=== PATIENT | female | born 1930 | race Caucasian/White ===

== ENCOUNTER 2017-06-06 13:03 | Inpatient (IN) | payer OTHER ==
[~2017-06-06] VITALS: Ht 165.1 cm; Wt 68.0 kg
--- NOTE | ~2017-06-06 | EKG ---
[address] [address] ELECTROCARDIOGRAM REPORT Name: ALLAVLAD Room #: 456-P ADM IN M.R.#: [id number] Admission: 06/06/17 Attend Phys: Armando Woo DO Discharge: Date of : [birth year] Report #: [id number] THIS REPORT FOR: //name// [facility] ED Test Date: 2017-06-06 Test Time: 13:19:12 Pat Name: VLAD GOLD Department: Room: 456 Gender: F General Internist: FERNANDO : 1930 Requested By: Patricio Philip Order Number: [id number] MD: Hermilo Wheat Measurements Intervals [place] Rate: 73 P: [place]: QRS: 48 QRSD: 92 T: 1 QT: 402 QTc: 443 Interpretive Statements Atrial fibrillation Borderline T abnormalities, inferior leads No previous ECG available for comparison Electronically Signed On 06-08-2017 22:08:16 CDT by Hermilo Wheat [email or web address] <ELECTRONICALLY SIGNED> By: Hermilo Wheat MD 06/08/17 2208 1319 1319 Hermilo Wheat MD /VICKIE
[2017-06-06 13:06] VITALS: BP 130/80
[2017-06-06] MEDS ORDERED: BAYER CHEWABLE81 MG PO (13:22)
[2017-06-06] MEDS ORDERED: ALDACTONE25 MG PO (13:23)
[2017-06-06] MEDS ORDERED: LISINOPRIL20 MG PO (13:23)
[2017-06-06] MEDS ORDERED: CARVEDILOL25 MG PO (13:23)
[2017-06-06] MEDS ORDERED: DEMADEX20 MG PO (13:24)
[2017-06-06] MEDS ORDERED: SIMVASTATIN10 MG PO (13:24)
[2017-06-06 13:51] LABS: HEMATOCRIT 31.7 % (37.0-47.0); HEMOGLOBIN 10.3 gm/dL (12.0-15.0); MCH 28.9 pg (26.0-34.0); MCHC 32.7 g/dL (28.0-37.0); MCV 88.6 fL (80.0-100.0); PLATELET COUNT 213 thou/uL (150-400); RBC 3.58 mil/uL (4.20-5.00); RDW 15.1 % (10.5-14.5); WBC 14.7 thou/uL (4.0-11.0)
[2017-06-06 13:53] LABS: MANUAL DIFF YES
[2017-06-06 14:03] LABS: CALCIUM 8.6 mg/dL (8.5-10.1); POTASSIUM 3.6 mmol/L (3.5-5.1)
[2017-06-06 14:13] LABS: ALBUMIN 3.3 g/dL (3.4-5.0); MAGNESIUM 2.2 mg/dL (1.8-2.4); TOTAL BILIRUBIN 1.5 mg/dL (<0.1-1.0); TOTAL PROTEIN 7.2 g/dL (6.4-8.2); TROPONIN-I 0.04 ng/mL (<0.04-0.07)
[2017-06-06 14:20] LABS: ABSOLUTE NEUTROPHILS 13.7 thou/uL (1.4-8.2); LARGE PLATELETS FEW; TOTAL CELL COUNT 100
[2017-06-06 17:27] VITALS: BP 140/73
[2017-06-06 19:33] VITALS: BP 106/62
[2017-06-07 01:58] LABS: ABSOLUTE NEUTROPHILS 7.7 thou/uL (1.4-8.2); BASOPHILS 0.3 % (0.0-2.0); EOSINOPHILS 0.9 % (0.0-3.0); HEMATOCRIT 28.1 % (37.0-47.0); HEMOGLOBIN 9.5 gm/dL (12.0-15.0); LYMPHOCYTES 12.3 % (24.0-44.0); MCH 29.3 pg (26.0-34.0); MCHC 33.8 g/dL (28.0-37.0); MCV 86.8 fL (80.0-100.0); MONOCYTES 8.5 % (1.0-8.0); PLATELET COUNT 179 thou/uL (150-400); RBC 3.24 mil/uL (4.20-5.00); RDW 15.2 % (10.5-14.5); WBC 9.9 thou/uL (4.0-11.0)
[2017-06-07 02:00] LABS: CREATININE 1.1 mg/dL (0.6-1.0); MAGNESIUM 2.1 mg/dL (1.8-2.4)
[2017-06-07 02:18] LABS: MANUAL DIFF NO
[2017-06-07 03:59] VITALS: BP 104/47
[2017-06-07 07:30] VITALS: BP 138/59
[2017-06-07] MEDS ORDERED: ESTRADIOL 1 MG T1 M1 PO (09:41)
[2017-06-07 12:48] VITALS: BP 105/44
[2017-06-07 16:26] VITALS: BP 126/57
[2017-06-07 18:01] LABS: URINE BILIRUBIN NEGATIVE (Negative); URINE BLOOD NEGATIVE (Negative); URINE COLOR YELLOW; URINE GLUCOSE-RANDOM* NEGATIVE (Negative); URINE KETONES NEGATIVE (Negative); URINE LEUKOCYTES-REFLEX NEGATIVE (Negative); URINE PROTEIN (DIPSTICK) NEGATIVE (Negative); URINE SPECIFIC GRAVITY <= 1.005 (1.003-1.035); URINE UROBILINOGEN 0.2 E.U./dl (0.2-1.0)
[2017-06-07 19:26] VITALS: BP 109/54
[2017-06-08 02:57] VITALS: BP 111/67
[2017-06-08 05:50] LABS: ABSOLUTE NEUTROPHILS 6.9 thou/uL (1.4-8.2); BASOPHILS 0.1 % (0.0-2.0); EOSINOPHILS 1.4 % (0.0-3.0); HEMATOCRIT 26.6 % (37.0-47.0); HEMOGLOBIN 9.1 gm/dL (12.0-15.0); LYMPHOCYTES 11.3 % (24.0-44.0); MCH 29.6 pg (26.0-34.0); MCHC 34.1 g/dL (28.0-37.0); MCV 86.7 fL (80.0-100.0); PLATELET COUNT 174 thou/uL (150-400); POLYS 75.2 % (36.0-66.0); RBC 3.07 mil/uL (4.20-5.00); RDW 15.3 % (10.5-14.5); WBC 9.2 thou/uL (4.0-11.0)
[2017-06-08 05:57] LABS: MANUAL DIFF NO
[2017-06-08 06:14] LABS: ALBUMIN 2.4 g/dL (3.4-5.0); CALCIUM 7.8 mg/dL (8.5-10.1); MAGNESIUM 2.1 mg/dL (1.8-2.4); POTASSIUM 3.5 mmol/L (3.5-5.1); TOTAL BILIRUBIN 0.6 mg/dL (<0.1-1.0); TOTAL PROTEIN 5.9 g/dL (6.4-8.2)
[2017-06-08 08:19] VITALS: BP 112/51
[2017-06-08 12:40] VITALS: BP 120/64
[2017-06-08 15:25] VITALS: BP 126/89
[2017-06-08 20:12] VITALS: BP 107/44
[2017-06-09 03:46] VITALS: BP 133/49
[2017-06-09 05:14] LABS: ABSOLUTE NEUTROPHILS 5.1 thou/uL (1.4-8.2); BASOPHILS 0.3 % (0.0-2.0); HEMATOCRIT 26.5 % (37.0-47.0); HEMOGLOBIN 9.1 gm/dL (12.0-15.0); LYMPHOCYTES 16.3 % (24.0-44.0); MCH 29.5 pg (26.0-34.0); MCHC 34.2 g/dL (28.0-37.0); MCV 86.1 fL (80.0-100.0); MONOCYTES 11.8 % (1.0-8.0); PLATELET COUNT 173 thou/uL (150-400); POLYS 68.6 % (36.0-66.0); RBC 3.08 mil/uL (4.20-5.00); RDW 15.4 % (10.5-14.5); WBC 7.5 thou/uL (4.0-11.0)
[2017-06-09 05:17] LABS: MANUAL DIFF NO
[2017-06-09 05:35] LABS: ALBUMIN 2.5 g/dL (3.4-5.0); CREATININE 0.8 mg/dL (0.6-1.0); POTASSIUM 3.7 mmol/L (3.5-5.1); TOTAL BILIRUBIN 0.5 mg/dL (<0.1-1.0); TOTAL PROTEIN 6.1 g/dL (6.4-8.2)
[2017-06-09 08:08] VITALS: BP 132/71
[2017-06-09 11:47] VITALS: BP 118/60
[2017-06-09 16:05] VITALS: BP 134/60
[2017-06-09 19:54] VITALS: BP 122/52
[2017-06-10 05:04] VITALS: BP 143/72
[2017-06-10 07:40] VITALS: BP 120/79
[2017-06-10] MEDS ORDERED: CEPHALEXIN 500500 M3 PO (11:31)
[2017-06-10] MEDS ORDERED: COLCRYS0.6 MG PO (11:32)
[2017-06-10 12:41] VITALS: BP 125/82
== END 2017-06-10 15:14 | DRG 602 ==
LOC: ER 13:03 → 4W 16:15 → EROBS 16:15 → 4W 16:53
PROVIDERS: Emergency Medicine; Internal Medicine Geriatric Medicine; Nurse Practitioner Family
DX: L03.116 Cellulitis of left lower limb (principal); I50.21 Acute systolic (congestive) heart failure; E43 Unspecified severe protein-calorie malnutrition; N17.9 Acute kidney failure, unspecified; M10.9 Gout, unspecified; I11.0 Hypertensive heart disease with heart failure; I48.91 Unspecified atrial fibrillation; E87.6 Hypokalemia; D64.9 Anemia, unspecified; R33.9 Retention of urine, unspecified; Z90.710 Acquired absence of both cervix and uterus; Z88.8 Allergy status to other drugs, medicaments and biological substances
CPT/HCPCS: 10045

== ENCOUNTER 2017-06-10 10:39 | Inpatient (IN) | payer OTHER ==
[~2017-06-10] VITALS: Ht 165.1 cm; Wt 73.7 kg
--- NOTE | ~2017-06-10 | HC ---
[facility] [place] [address] CONSULTATION Name: VLAD GOLD Room #: 509-P [facility] IN .R.#: [id number] Admission: 06/10/17 Attend Phys: Escobar Cotter MD Discharge: 06/19/17 Date of : [birth year] Report #: [id number] THIS REPORT FOR: //name// CC: Escobar Harden Dony DATE OF SERVICE: 06/16/2017 ATTENDING PHYSICIAN: Escobar Cotter M.D. SHIPWRIGHT SUPERVISOR: Levy Flores, PhD CLINICAL PRESENTATION: The patient is an 86-year-old female admitted to the rehabilitation unit at [facility] for comprehensive inpatient rehabilitation program to improve functional mobility, activities of daily living and self-care and mental status secondary to deficits from medical complexity and generalized debilitation. Her medical problems include acute decompensated heart failure, cellulitis, and congestive heart failure. A complete description of her medical condition, history and medications can be found in her medical records. Neuropsychological consultation was requested to provide assistance in the assessment of cognitive and emotional status and to provide recommendations and services. Prior to this most recent medical event, she was living independently in her own home with her . She has 2 children. Both children are dentists. The patient is reported to be moving into the home of her son following discharge from inpatient rehabilitation. Her family is concerned about her cognitive functioning and describe problems with memory, word finding and thought organization. The patient appears to lack insight into her cognitive deficits, as she does not report the problems that are noticed by her family. difficulty with cognition, mood or behavior. Cognitive assessement from speech therapy while still an inpatient at [facility], suggest deficits in executive functioning and memory. TECHNIQUES UTILIZED: Clinical Interview, Staff Consultation, Family Interview - Son EXAMINATION FINDINGS AND RECOMMENDATIONS: As indicated the patient is not reporting problems with cognitive functining, mood or behavior. Her principal complaint is pain from Gout. Since she is presenting with deficits in cognition as noted by speech and her family is concerned about her cognitive status, follow up neuropsychological assessment following discharge is indicated. I discussed follow up assessment with son and he is planning to call my office and arrange for the appointment. [facility] [address] [place] [address] CONSULTATION Name: VLAD GOLD Room #: 509-P DIS IN M.R.#: [id number] Admission: 06/10/17 Attend Phys: Escobar Cotter MD Discharge: 06/19/17 Date of : [birth year] Report #: [id number] Followup neuropsychological assessment will help clarifity the severity of her deficits and provide recommendations to assist with adjustment and for compensatory strateies. Thank you very much for allowing me to provide the consultation on this patient. <ELECTRONICALLY SIGNED> By: Levy Flores, PhD 06/22/17 1414 1452 06 Levy Flores, PhD /nt
--- NOTE | ~2017-06-10 | HC ---
[facility] [place] [address] CONSULTATION Name: VLAD GOLD Room #: 509-P [facility] IN .R.#: [id number] Admission: 06/10/17 Attend Phys: Escobar Cotter MD Discharge: Date of : [birth year] Report #: [id number] THIS REPORT FOR: //name// CC: Escobar Jaimes DATE OF SERVICE: 06/12/2017 CHIEF COMPLAINT: Gluteal pressure ulcerations. HISTORY OF PRESENT ILLNESS: This is an 86-year-old female patient who is admitted to the rehab floor. I have been consulted to see her with regard to care of stage 2 pressure ulcerations to the left buttock and left ischial region. The patient notes a little bit of discomfort in that location. She was originally admitted to the hospital with left ankle pain and left lower extremity cellulitis. She was seen by the wound care nurses for the ulcerations on her gluteal and ischial region. PAST MEDICAL HISTORY: Positive for history of congestive heart failure, cellulitis. ALLERGIES: CODEINE AND IODINE. MEDICATIONS: Include spironolactone, carvedilol, lisinopril, simvastatin, torsemide, estradiol, chewable aspirin, colchicine, cephalexin. SOCIAL HISTORY: Negative for alcohol or tobacco use. FAMILY HISTORY: Noncontributory. SOCIAL HISTORY: Negative for alcohol or tobacco use. REVIEW OF SYSTEMS: CONSTITUTIONAL: Denies fever, chills, weight loss. NEUROLOGICAL: Denies focal weakness, numbness, tingling. EYES: The patient denies visual change, but has drainage. ENT: The patient denies earache, nasal drainage, sore throat. CARDIOVASCULAR: The patient denies chest pain, palpitations, diaphoresis. PULMONARY: The patient denies cough, shortness of breath. GASTROINTESTINAL: The patient denies nausea, diarrhea or abdominal pain. ORTHOPEDIC: The patient denies pain, swelling in the extremities. She is aware of ulcerations on the gluteal and ischial regions, states that she has some discomfort there. Other systems of the 12-point review of systems are negative. [address] [address] CONSULTATION Name: VLAD GOLD Room #: 509-P [facility] IN M.R.#: [id number] Admission: 06/10/17 Attend Phys: Escobar Cotter MD Discharge: Date of : [birth year] Report #: [id number] PHYSICAL EXAMINATION: VITAL SIGNS: Include pulse 70, respiratory rate 16, blood pressure 110/50, temperature 98.4. GENERAL: This is a chronically ill-appearing female patient appears in minimal distress. HEENT: Head normocephalic. Nose and throat clear. NECK: Supple. LUNGS: Clear. HEART: . ABDOMEN: Soft. Bowel sounds present. EXTREMITIES: The sacral gluteal region demonstrates erythema that is consistent with stage 2 pressure ulceration to the left gluteal and left ischial region. No subcutaneous tissue exposed at this time. No evidence of infection is noted. CLINICAL IMPRESSION: 1. Stage 2 pressure ulceration to the right gluteal region and right ischial region. 2. Acute decompensated congestive heart failure. 3. History of cellulitis. RECOMMENDATIONS: At this point in time, we will recommend moisture barrier cream to the affected areas. She needs to be turned and repositioned while in bed. We recommend offloading whenever possible when seated in chair. I appreciate being asked to see the patient in consultation. <ELECTRONICALLY SIGNED> By: Lance Ceron MD 06/13/17 0742 1700 2142 Lance Ceron MD /nt
[~2017-06-10 10:39] MED LIST: ALDACTONE25 MG PO; BAYER CHEWABLE81 MG PO; CARVEDILOL25 MG PO; DEMADEX20 MG PO; ESTRADIOL 1 MG T1 M1 PO; LISINOPRIL20 MG PO; SIMVASTATIN10 MG PO
[2017-06-10] MEDS ORDERED: CEPHALEXIN 500500 M3 PO (11:31)
[2017-06-10] MEDS ORDERED: COLCRYS0.6 MG PO (11:32)
[2017-06-10 15:30] VITALS: BP 155/70
[2017-06-11 05:02] LABS: HEMATOCRIT 27.1 % (37.0-47.0); HEMOGLOBIN 9.2 gm/dL (12.0-15.0); MCH 29.2 pg (26.0-34.0); MCHC 33.9 g/dL (28.0-37.0); MCV 86.1 fL (80.0-100.0); RBC 3.14 mil/uL (4.20-5.00); RDW 14.8 % (10.5-14.5); WBC 6.1 thou/uL (4.0-11.0)
[2017-06-11 05:14] LABS: CALCIUM 8.5 mg/dL (8.5-10.1); CREATININE 0.8 mg/dL (0.6-1.0); POTASSIUM 3.9 mmol/L (3.5-5.1)
[2017-06-11 05:39] VITALS: BP 144/57
[2017-06-11 16:00] VITALS: BP 131/59
[2017-06-12 05:33] VITALS: BP 126/62
[2017-06-12 08:00] VITALS: BP 137/70
[2017-06-12 12:00] VITALS: BP 132/54
[2017-06-12 16:00] VITALS: BP 135/50
[2017-06-13 06:42] VITALS: BP 125/54
[2017-06-14 06:13] VITALS: BP 130/62
[2017-06-14 16:00] VITALS: BP 103/56
[2017-06-15 04:39] VITALS: BP 129/60
[2017-06-15 16:00] VITALS: BP 120/46
[2017-06-16 04:34] VITALS: BP 130/61
[2017-06-16 15:30] VITALS: BP 116/64
[2017-06-17 04:33] LABS: ABSOLUTE NEUTROPHILS 3.5 thou/uL (1.4-8.2); BASOPHILS 0.9 % (0.0-2.0); HEMATOCRIT 28.1 % (37.0-47.0); HEMOGLOBIN 9.5 gm/dL (12.0-15.0); LYMPHOCYTES 27.3 % (24.0-44.0); MCH 28.8 pg (26.0-34.0); MCHC 33.8 g/dL (28.0-37.0); MCV 85.2 fL (80.0-100.0); MONOCYTES 10.5 % (1.0-8.0); PLATELET COUNT 208 thou/uL (150-400); POLYS 57.3 % (36.0-66.0); RBC 3.31 mil/uL (4.20-5.00); RDW 15.6 % (10.5-14.5)
[2017-06-17 04:40] LABS: MANUAL DIFF NO
[2017-06-17 04:44] LABS: CALCIUM 8.6 mg/dL (8.5-10.1); CREATININE 0.9 mg/dL (0.6-1.0); MAGNESIUM 1.8 mg/dL (1.8-2.4)
[2017-06-17 05:25] VITALS: BP 125/66
[2017-06-17 08:00] VITALS: BP 138/77
[2017-06-17 15:30] VITALS: BP 127/55
[2017-06-17 15:57] VITALS: BP 138/77
[2017-06-18 05:25] VITALS: BP 119/49
[2017-06-18 15:51] VITALS: BP 128/83
[2017-06-19 05:15] VITALS: BP 112/60
[2017-06-19 09:29] VITALS: BP 138/77
[2017-06-19] MEDS ORDERED: FLOMAX0.4 MG PO (10:04)
[2017-06-19 11:50] VITALS: BP 138/77
[2017-06-19 13:30] VITALS: BP 138/77
== END 2017-06-19 13:50 | disposition home health service (06) | DRG 947 ==
PROVIDERS: Nurse Practitioner; Physical Medicine & Rehabilitation
DX: R53.81 Other malaise (principal); E43 Unspecified severe protein-calorie malnutrition; L03.90 Cellulitis, unspecified; I50.9 Heart failure, unspecified; L89.312 Pressure ulcer of right buttock, stage 2; L89.892 Pressure ulcer of other site, stage 2; I48.91 Unspecified atrial fibrillation; E78.00 Pure hypercholesterolemia, unspecified; I11.0 Hypertensive heart disease with heart failure; R33.9 Retention of urine, unspecified; M10.9 Gout, unspecified; Z88.6 Allergy status to analgesic agent; Z91.041 Radiographic dye allergy status; Z79.899 Other long term (current) drug therapy; Z90.710 Acquired absence of both cervix and uterus; Z68.27 Body mass index [BMI] 27.0-27.9, adult
CPT/HCPCS: 10112

== ENCOUNTER → 2017-12-23 | Outpatient (CLI) | payer OTHER ==
[~2017-12-23] MED LIST changes: +CEPHALEXIN 500500 M3 PO; +COLCRYS0.6 MG PO; +FLOMAX0.4 MG PO
--- NOTE | ~2017-12-23 | EKG ---
[place] [address] [facility] [place] [address] ELECTROCARDIOGRAM REPORT Name: VLAD GOLD Room #: REG VERN Nelson#: [id number] Admission: 12/23/17 Attend Phys: Physician not on staff Discharge: Date of : [birth year] Report #: [id number] THIS REPORT FOR: //name// [facility] Test Date: 2017-12-23 Test Time: 15:51:49 Pat Name: VLAD GOLD Department: Room: Gender: F Carton Forming Machine Tender: Lyric SMITH : 1930 Requested By: Physician staff Order Number: [id number] MD: Measurements Intervals [place] Rate: 69 P: [place]: QRS: 112 QRSD: 100 T: 1 QT: 413 QTc: 443 Interpretive Statements Atrial fibrillation Paired ventricular premature complexes Right axis deviation Abnormal R-wave progression, late transition Minimal ST depression, inferior leads Compared to ECG 06/06/2017 13:19:12 Ventricular premature complex(es) now present Right-axis deviation now present ST (T wave) deviation now present T-wave abnormality no longer present [email or web address] By: 1551 1551 Epiphany Epiphany, /EPI
--- NOTE | ~2017-12-23 | EKG ---
[place] [address] [facility] [place] [address] ELECTROCARDIOGRAM REPORT Name: VLAD GOLD Room #: REG VERN Nelson#: [id number] Admission: 12/23/17 Attend Phys: Physician not on staff Discharge: Date of : [birth year] Report #: [id number] THIS REPORT FOR: //name// [facility] Test Date: 2017-12-23 Test Time: 15:51:49 Pat Name: VLAD GOLD Department: Room: Gender: F Edging Machine Feeder: Lyric SMITH : 1930 Requested By: Dereck Jaimes Order Number: [id number] MD: Hermilo Wheat Measurements Intervals [place] Rate: 69 P: [place]: QRS: 112 QRSD: 100 T: 1 QT: 413 QTc: 443 Interpretive Statements Atrial fibrillation Paired ventricular premature complexes Right axis deviation Abnormal R-wave progression, late transition Compared to ECG 06/06/2017 13:19:12 Electronically Signed On 12-24-2017 8:09:39 [employer] by Hermilo Wheat [email or web address] <ELECTRONICALLY SIGNED> By: Hermilo Wheat MD 12/24/17 0809 D: 01/1550 50 Hermilo Wheat MD /VICKIE
== END ==
LOC: CV 15:12
DX: R00.0 Tachycardia, unspecified (principal)